=== PATIENT | female | born 1950 | race Caucasian/White ===

== ENCOUNTER → 2017-01-10 | Outpatient (CLI) | payer OTHER ==
[~2017-01-10] MED LIST: CLMTP EXT; OXYC-57 PO; PROM25TA PO
== END | disposition home or self-care (01) ==
LOC: C.PATHSPEC 12:48
PROVIDERS: ATTEND Otolaryngology
DX: C44.91 Basal cell carcinoma of skin, unspecified (principal)

== ENCOUNTER 2018-07-06 07:58 | Observation (INO) ==
--- NOTE | 2018-06-27 09:24 | Anesthesiology Consultation ---
Date of Service June 27, 2018 Assessment & Plan (1) Encounter for pre-operative examination: Chart Review Chart Review: Acceptable Risk for Surgery and Patient NOT seen in Pre Admission Testing History Surgery Operation Date: 07/06/18 10:50 Proposed Procedures p Left Breast Lumpectomy with Needle Localization, and Left [place] Lymph Node Biopsy (Injection Only), Possible Left Breast Mastectomy with Left [place] Lymph Node Biopsy - Toni Grey MD, FACS Height/Weight Height: 5 ft 3.5 in Weight: 63.503 kg Allergies Allergy/AdvReac Type Severity Reaction Status Date / Time latex Allergy Mild itchy Verified 06/25/18 07:59 Sulfa (Sulfonamide Allergy Mild n/v Verified 06/25/18 07:59 Antibiotics) codeine AdvReac Mild SENSITIVE Verified 10/14/09 20:12 TO CODEINE morphine AdvReac Unknown NAUSEA/VOMI Verified 10/14/09 20:12 TING metal AdvReac Mild itching Uncoded 06/25/18 07:59 can only wear gold Medications Home Medications Medication Instructions Recorded Confirmed Last Taken acetaminophen [Tylenol] 325 mg PO Q6H PRN 06/25/18 06/25/18 Unknown diclofenac sodium 75 mg PO HS 06/25/18 06/25/18 Unknown Past Medical History Medical History Cancer left breast cancer 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 Lumbar stenosis PONV (postoperative nausea and vomiting) Past Surgical History Surgical History History of open reduction and internal fixation (ORIF) procedure left elbow- limitation with use History of tonsillectomy and adenoidectomy History of total abdominal hysterectomy and bilateral salpingo-oophorectomy Hx of appendectomy History of PONV Yes Social History Smoking Status: Never smoker Do You Dip or Chew Tobacco: No Hx Alcohol Use: Yes Alcohol type: wine alcohol intake frequency: a few times a week Hx Substance Use: No substance use type: does not use Testing Electrocardiogram Date: 06/22/18 Findings: + NSR @ (60) Laboratory Results Laboratory Tests 06/20/18 06/20/18 15:16 15:16 WBC 5.13 Hgb 13.4 Hct 41.1 Plt Count 289 Sodium 138 Potassium 3.8 Chloride 107 Carbon Dioxide 28 BUN 9 Creatinine 0.83 Glucose 115 H
[~2018-07-06 07:58] MED LIST changes: +CEFAZOLIN 2000MG 2,000 MG/15 ML SYR IV SCH; -CLMTP EXT; +LR 15ML/HR IV SCH; -OXYC-57 PO; -PROM25TA PO
--- NOTE | 2018-07-06 09:53 | Nuclear Medicine Report ---
NM sentinel node inject only CLINICAL HISTORY: 67 years-old Female presenting with breast cancer, left breast ca. COMPARISON: Needle localization mammography from earlier the same day. PROCEDURE: Using standard aseptic technique, 5 intradermal injections of 0.5 mCi of Lymphoseek were administered in the left breast in the periareolar region. The patient tolerated the procedure well. There were no immediate complications. The patient was subsequently transported to the surgical suite. No imaging was obtained at the referr ing physician's request. IMPRESSION: Injection of 0.5 mCi of Lymphoseek in the left breast. Electronically signed by: Paulino Ching M.D. 07/06/2018 9:52 AM
--- NOTE | 2018-07-06 09:53 | History & Physical Bridge Note ---
Date of Service July 06, 2018 History & Physical Bridge Note I have examined the patient, reviewed the History & Physical and in the interval since the performance of the History & Physical I have noted the following changes of clinical significance: no changes noted Mastectomy will not be done
[2018-07-06] MEDS ORDERED: LIDOCAINE HCL 2% 2 ML VIAL/AMP(20MG/ML) INFIL ONE (10:17)
[2018-07-06] MEDS ORDERED: PROPOFOL IV EMULSION 10 MG/ML 20 ML VIAL IV ONE ×2 (10:17→10:38)
[2018-07-06] MEDS ORDERED: MIDAZOLAM HCL 1 MG/ML 2ML VIAL ONE (10:17)
[2018-07-06] MEDS ORDERED: fentaNYL citrate 100 MCG/2 ML VIAL ONE ×2 (10:17→13:25)
[2018-07-06] MEDS ORDERED: BUPIVACAINE 0.5 % 5 MG/1 ML MPF 30ML VIAL ONE (11:30)
[2018-07-06] MEDS ORDERED: METHYLENE BLUE 0.5% 10 ML VIAL ONE (11:31)
[2018-07-06] MEDS ORDERED: SCOPOLAMINE 1.5 MG TDSY ONE (11:33)
[2018-07-06] MEDS ORDERED: ISOSULFAN BLUE 10 MG/ML VIAL 5 ML ONE (11:37)
[2018-07-06] MEDS ORDERED: ePHEDrine sulfate 50 MG/ML SYR ONE (12:13)
[2018-07-06] MEDS ORDERED: DEXAMETHASONE SOD INJ 4 MG/ML VIAL ONE (12:54)
[2018-07-06] MEDS ORDERED: ONDANSETRON INJ 2 MG/ML 2 ML VIAL ONE (12:54)
--- NOTE | 2018-07-06 13:19 | Operative Report ---
Post Operative Report Pre & Post Diagnosis Operation Date: 07/06/18 10:50 <No data on this case meets the specified criteria> preop dx- Lt breast cancer postop dx- same Procedure Operation Date: 07/06/18 10:50 op- Lt breast lumpectomy with Lt sentinal lymph node bx <No data on this case meets the specified criteria>op Surgeon Toni Grey MD, FACS Cyanide Case Hardener Seven [place]iste Estimated Blood Loss 20 Findings Consistent with Post-Op Diagnosis Specimens Lt breast tissue and Lt axillary lymph node I attest to the content of the Intraoperative Record and any orders documented therein. Any exceptions are noted below.
[2018-07-06] MEDS ORDERED: ACETAMINOPHEN 1,000 MG/100 ML VIAL IV ONE ×2 (13:29→13:45)
[2018-07-06] MEDS ORDERED: ONDANSETRON INJ 2 MG/ML 2 ML VIAL IV PRN ×2 (13:30→13:41)
[2018-07-06] MEDS ORDERED: HYDROmorphone INJ 0.5 MG/0.5 ML SYR IV PRN (13:30)
[2018-07-06] MEDS ORDERED: LORazepam 0.5 MG/1 ML VIAL IV PRN (13:30)
[2018-07-06] MEDS ORDERED: TRAMADOL HCL 50 MG TABLET PO PRN (13:30)
[2018-07-06] MEDS ORDERED: IBUPROFEN 600 MG TAB PO PRN (13:30)
[2018-07-06] MEDS ORDERED: PROMETHAZINE HCL 12.5 MG in SODIUM CHLORIDE 0.9% 50 ML IV PRN ×2 (13:30→13:41)
[2018-07-06] MEDS ORDERED: NALOXONE HCL 0.4 MG/1 ML VIAL/CARP IV PRN (13:41)
[2018-07-06] MEDS ORDERED: LABETALOL HCL IV 5 MG/ML 20ML IV PRN (13:41)
[2018-07-06] MEDS ORDERED: fentaNYL citrate 100 MCG/2 ML VIAL IV PRN (13:41)
[2018-07-06] MEDS ORDERED: ATROPINE SULFATE 0.1 MG/ML 10ML SYR IV PRN (13:41)
[2018-07-06] MEDS ORDERED: FLUMAZENIL 0.1 MG/1 ML 10 ML VIAL IV PRN (13:41)
[2018-07-06] MEDS ORDERED: SODIUM CHLORIDE 0.9% 500 ML IV SCH (13:45)
[2018-07-06] MEDS ORDERED: ACETAMINOPHEN 1000 MG/100 ML IV IV ONE (13:46)
--- NOTE | 2018-07-06 14:09 | Operative Report ---
DATE OF OPERATION: 07/06/2018 NAME OF OPERATION: Left breast lumpectomy with sentinel lymph node biopsy. PREOPERATIVE DIAGNOSIS: Left breast cancer. POSTOPERATIVE DIAGNOSIS: Left breast cancer. STAFF SURGEON: Toni Grey MD MEAT HANGER: Dashawn Jean Baptiste PA-C ANESTHESIA: General. DESCRIPTION OF PROCEDURE: The patient was brought in the operating room and placed on the operating table in supine position. Her left breast and axilla were prepped and draped in usual fashion. She had a needle placed approximately 8 o'clock position in the left breast and had been injected for sentinel lymph node biopsy. Using the Neoprobe, we made an incision in the left axilla using 0.5% plain Marcaine local anesthesia carrying dissection very deep down into the axilla, identifying the sentinel lymph node. It was enlarged and sent for frozen section. The frozen section was negative. During the frozen section, we performed lumpectomy making an elliptical incision around the needle superiorly and then carrying dissection down around the needle to the pectoralis major muscle. The tissue was then marked with a left breast tissue, needle/skin anterior, long silk suture superior, short silk suture medial, plain suture lateral/retroareolar with methylene blue marking the deep muscle margin. Additional inferior tissue was taken. This was inferior/retroareolar tissue and the short silk suture was medial, plain suture lateral/retroareolar, methylene blue new margin. Additional superior/retroareolar tissue was also taken with a short silk suture medial, plain suture lateral/retroareolar and methylene blue new margin. Clips were placed on the muscle at the level of the tumor. At this point, the axilla was closed using 2-0 plain for the deep tissue and 5-0 Prolene for the skin. The breast was closed with 2-0 plain suture for the deep tissue and subcuticular 5-0 Monocryl with Steri-Strips for the incision. Dressings were applied and the patient transferred to the recovery room in stable condition. I attest to the content of the Intraoperative Record and any orders documented therein. Any exception s are noted below.
--- NOTE | 2018-07-06 14:09 | Mammography Report ---
NEEDLE LOCALIZATION LEFT BREAST: 07/06/2018 CLINICAL HISTORY: Biopsy-proven malignancy left 8:00 breast. PROCEDURE DESCRIPTION: With ultrasound guidance, aseptic technique, and 1% lidocaine as the local ane sthetic, the mass and associated biopsy clip in the left 8:00 breast were localized with a 5 cm Anokion SA ns 2 needle. Postprocedural left CC and ML mammograms were obtained to document wire placement, whic h shows that the mass and associated biopsy marker clip are located along the distal portion of the w jake. The needle was left in place. The patient tolerated the procedure without complication. COMPARISON: Comparison is made to exams dated: 06/29/2018 aspiration, 06/29/2018 ultrasound, 018 mammogram, 06/29/2018 ultrasound biopsy, 06/22/2018 breast MRI, and 06/13/2018 mammogram - [facility]. IMPRESSION: NEEDLE LOCALIZATION Ultrasound-guided needle localization of the biopsy-proven malignancy and associated biopsy marker cl ip in the left 8:00 breast. Beverly Goff M.D. ah/:07/06/2018 08:27:28 Fashion Styling Intern: RT No(R)(M), [facility]
--- NOTE | 2018-07-06 14:12 | Mammography Report ---
UNILATERAL LEFT DIGITAL DIAGNOSTIC MAMMOGRAM TOMOSYNTHESIS: 07/06/2018 CLINICAL HISTORY: Status post ultrasound-guided needle localization of the left breast. TECHNIQUE: Breast tomosynthesis in addition to standard 2D mammography was performed. Left CC and ML O 2D and tomosynthesis images were obtained. COMPARISON: Comparison is made to exams dated: 06/29/2018 mammogram, 06/13/2018 mammogram, 06/06/2018 mammogram, 06/29/2018 ultrasound, 06/29/2018 aspiration, and 07/06/2018 localization - [facility]. BREAST COMPOSITION: The tissue of left breast is heterogeneously dense, which may obscure small zohaib s. FINDINGS: Unilateral left mammograms are obtained after ultrasound-guided needle localization of the biopsy-pro gladys malignancy in the left 8:00 breast. The mass and associated biopsy marker clip are located along the distal portion of the wire and needle. IMPRESSION: The localized mass and associated biopsy marker clip in the left 8:00 breast are located along the di stal portion of the needle localization wire. Some breast cancers are not detected with mammography. A negative mammographic report should not emelina y biopsy if a clinically suggestive mass is present. Beverly Goff M.D. /:07/06/2018 08:28:52 Climatologist: RT No(Cayden)(M), [facility] BI-RADS Code: n/a
--- NOTE | 2018-07-06 14:20 | Anesthesiology Progress Note ---
Date of Service July 06, 2018 Anesthesia Post Procedure Vital Signs Vital Signs: Temp Pulse Pulse Resp BP Pulse Ox 07/06/18 14:05 60 12 157/95 H 100 07/06/18 13:55 62 16 162/77 H 100 07/06/18 13:45 63 13 174/79 H 100 07/06/18 13:35 71 18 167/75 H 100 07/06/18 13:28 36.4 C L 80 12 160/76 H 100 07/06/18 09:29 37.1 C 68 18 165/93 H 99 Pain Intensity Left Breast: Pain Intensity: 2 Left Axilla: Pain Intensity: 6 Notes Mental Status: alert / awake / arousable Patient Amnestic to Procedure: Yes Nausea / Vomiting: adequately controlled Pain: adequately controlled Airway Patency, RR, SpO2: stable & adequate BP & HR: stable & adequate Hydration State: stable & adequate Anesthetic Complications: no major complications apparent
[2018-07-06] MEDS ORDERED: Nursing to Pharmacy Communication ONE (15:08)
[2018-07-06] MEDS ORDERED: ACETAMINOPHEN SOL 650 MG/20.3 ML UDC PO PRN (18:00)
[2018-07-06] MEDS: CEFAZOLIN 1000MG 1,000 MG/7.5 ML SYR IV SCH (20:28)
[2018-07-06] MEDS ORDERED: DICLOFENAC SODIUM 75 MG TABCR PO SCH (21:00)
[2018-07-06] MEDS: TRAMADOL HCL 50 MG TABLET PO PRN (22:58)
[2018-07-07] MEDS: CEFAZOLIN 1000MG 1,000 MG/7.5 ML SYR IV SCH (04:01)
[2018-07-07] MEDS: TRAMADOL HCL 50 MG TABLET PO PRN ×2 (04:01→09:23)
[2018-07-07 04:03] VITALS: O2SAT 97
--- NOTE | 2018-07-07 06:27 | Progress Note ---
Date of Service July 07, 2018 Assessment & Plan (1) H/O breast surgery: will d/c home this am- see in office next week Subjective doing well- mild pain wants to go home vitals stable Physical Exam 2 Vital Signs (Past 24 Hours): Last Vital Signs Temp 36.8 C 07/07/18 03:58 Pulse 65 07/07/18 03:58 Resp 16 07/07/18 03:58 BP 112/61 07/07/18 03:58 Pulse Ox 97 07/07/18 03:58 awake, alert no evidence of acute bleeding
[2018-07-07 06:54] VITALS: BP 148/72; PULSE 60; TEMP 99
--- NOTE | 2018-07-09 10:39 | Discharge Summary ---
PRINCIPAL DIAGNOSIS: Left breast cancer. POSTOPERATIVE DIAGNOSIS: Same. PROCEDURES: The patient underwent left breast lumpectomy with sentinel lymph node biopsy. HISTORY OF PRESENT ILLNESS AND HOSPITAL COURSE: The patient is a 67-year-old female with biopsy proven left breast cancer for definitive surgery. The patient was brought into the hospital on 07/06/2018 where she underwent a left breast lumpectomy with sentinel lymph node biopsy. She had had a needle localization at the [facility] prior to coming to the hospital. She tolerated the procedure well and has done well overnight and was felt stable for discharge on 07/07/2018 to be followed in the surgical office.
--- NOTE | 2018-07-09 14:53 | Mammography Report ---
SPECIMEN LEFT BREAST: 07/06/2018 CLINICAL HISTORY: Status post left breast surgical excision. COMPARISON: Comparison is made to exams dated: 07/06/2018 localization, 06/29/2018 aspiration, 018 ultrasound, 06/29/2018 mammogram, and 06/29/2018 ultrasound biopsy - [facility] . Findings: A radiograph was performed of the left breast surgical specimen. The localized biopsy clip is present centrally within the specimen. The needle localization wire and needle are also present. Results were relayed to the operating room over the telephone. IMPRESSION: SPECIMEN The imaged specimen contains the preoperativelylocalized biopsy clip. Beverly Goff M.D. ah/:07/06/2018 14:52:25 Cadd Operator: RT Nathaly(Cayden)(M), [facility]
== END 2018-07-07 09:43 | disposition home or self-care (01) ==
LOC: 3N 07:58 → ASU 07:58